=== PATIENT | female | born 1995 | race Caucasian/White ===

== ENCOUNTER 2019-06-15 14:30 | Inpatient (IN) ==
--- OUTSIDE RECORDS SUMMARY | 2019-06-15 14:37 | External Medical Summary | Continuity of Care Document ---
:1995 Author Name John Duran Address Unavailable Unavailable , Care Team Providers Name Role Phone Ailyn PACK Unavailable [email or web address] Mac Duran Unavailable [email or web address] Sylvia Davis Unavailable Unavailable Unavailable Unavailable Unavailable Problems Abnormal menses (626.9) (N92.6) Fatigue (780.79) (R53.83) Encounter for routine pelvic examination (V72.31) (Z01.419) Oral contraceptive pill surveillance (V25.41) (Z30.41) Venereal disease screening (V74.5) (Z11.3) Allergic rhinitis due to allergen (477.9) (J30.9) Infectious gastroenteritis (009.0) (A09) Asthmatic bronchitis (493.90) (J45.909) Extrinsic asthma (493.00) (J45.909) Allergic rhinitis due to dust (477.8) (J30.89) Allergic rhinitis due to pollen (477.0) (J30.1) Acute maxillary sinusitis (461.0) (J01.00) Acute sinusitis (461.9) (J01.90) Abdominal pain (789.00) (R10.9) Upper respiratory infection (465.9) (J06.9) Allergic rhinitis due to animals (477.2) (J30.81) Allergies and Adverse Reactions Zithromax TABS (Allergy) Reaction: Nause a, Vomiting Medications Zyrtec TABS Refills: 0 Singulair TABS Refills: 0 Proventil HFA 108 (90 Base) MCG/ACT Inha lation Aerosol Solution; INHALE TWO PUFFS BY MOUTH EVERY 4 HOURS NEEDED Renee Bolivar Start: Quantity: 1 Refills: 0 Falmina 0.1-20 MG-MCG Oral Tablet; TAKE 1 TABLET DAILY . Renee Watts Start: 30-Apr-2014 Quantity: 28 Refills: 3 Falmina 0.1-20 MG-MCG Oral Tablet; TAKE 1 TABLET DAILY . Renee Watts Start: 05-Nov-2015 Quantity: 28 Refills: 2 Fluticasone Propionate 50 MCG/ACT Nasal Suspension; USE 2 SPRAYS IN EACH NOSTRIL ONCE DAILY Renee Bolivar Start: 16-Jul-2011 Quantity: 1 Refills: 11 Procedures Procedures not documented Immunizations Hepatitis B On: 1995 0:00 Hepatitis B On: 22-Jan-1994 0:00 DTP - HIB ([place]) On: 22-Jan-1994 0:00 OPV On: 22-Jan-1994 0:00 DTP - HIB ([place]) On: 26-Mar-1994 0:00 OPV On: 26-Mar-1994 0:00 Hepatitis B On: 28-May-1994 0:00 DTP - HIB ([place]ramune) On: 28-May-1994 0:00 OPV On: 10-Oct-1994 0:00 HIB On: 08-Dec-1994 0:00 MMR On: 08-Dec-1994 0:00 DTaP On: 24-May-1995 0:00 Oriana test, tuberculin skin test; purifie d protein derivative, multipuncture device On: 28-Jul-1996 0:00 OPV On: 20-Apr-2000 0:00 MMR On: 20-Apr-2000 0:00 Tetanus-Diphtheria Toxoids Td 2-2 LF/0.5ML Intramuscul ar Suspension On: 20-Jul-2002 0:00 Influenza On: 29-Jul-2003 0:00 Influenza On: 29-Aug-2003 0:00 Tdap (Adacel) On: 13-Mar-2009 0:00 Menactra Intramuscular Injectable On: 13-Mar-2009 0:00 Meningo (Menactra) On: 16-Mar-2011 12:35 Lot #: [id number], [employer] HPV (Gardasil) 1 On: 16-Mar-2011 12:34 Lot #: [id number], [employer] Hepatitis A 1 On: 16-Mar-2011 12:34 Lot #: [id number], [employer] Influenza On: 12-Jun-2011 16:49 Lot #: [id number], [employer] HPV (Gardasil) On: 12-Jun-2011 16:48 Lot #: [id number], [employer] Hepatitis A 2 On: 03-Nov-2011 15:04 Lot #: [id number], [employer] HPV (Gardasil) 3 On: 03-Nov-2011 15:05 Lot #: [id number], [employer] Varicella Not Administered Family History Father Family history of Allergic Rhinitis Status: Active Mother Family history of Allergic Rhinitis Status: Active Social History - Smoking Status Never smoker Plan of Treatment Planned Observations Planned Goals not documented Results No Known Results Results not documented Encounters Appointment; Wali Robertson DMD 01-Jul-2018 10:00 Encounter Diagnosis: Problem not documented
[2019-06-15] MEDS ORDERED: miSOPROStol 50 MCG TAB PO ONE (16:00)
[2019-06-15] MEDS ORDERED: OXYTOCIN 30 UNITS/500 ML BAG IV PRN (16:00)
[2019-06-15 16:33] LABS: Hematocrit (blood only) 39.1 % (37-47); Hemoglobin 13.8 g/dL (12.0-16.0); Mean Corpuscular Hemoglobin 31.8 pg (25-34); Mean Corpuscular Volume 90.1 fL (80-100); Mean Platelet Volume 9.4 fL (7.4-10.4); Platelet Count 289 K/uL (130-400); RDW Coefficient of Variation 13.3 % (11.5-14.5); RDW Standard Deviation 43.7 fL (36.4-46.3); Red Blood Count 4.34 M/uL (4.2-5.4); White Blood Count 11.35 K/uL (4.8-10.8)
[2019-06-15 16:44] LABS: Mean Corpuscular Hgb Conc 35.3 g/dL (32-36)
--- NOTE | 2019-06-15 19:51 | History and Physical Report ---
DATE OF ADMISSION: 06/15/2019 HISTORY OF PRESENT ILLNESS: The patient is a 23-year-old G1, P0, at 40 weeks today, who was seen in the office. She had NST that supposedly showed some variables. Fluid check showed VANESSA was 5.8. The patient was sent to labor and delivery for induction of labor. On arrival to labor and delivery, she has no shortness of breath, no chills, no fever. heart rate is category 1. COURSE: Has been unremarkable. PAST MEDICAL HISTORY: History of migraines, PCOS, asthma, anxiety and depression. PAST SURGICAL HISTORY: None. SOCIAL HISTORY: The patient denies tobacco, drug or alcohol use. FAMILY HISTORY: Noncontributory. ALLERGIES: THE PATIENT IS ALLERGIC TO AZITHROMYCIN. PHYSICAL EXAMINATION: GENERAL: A well-developed, well-nourished white female in no acute distress. HEART: S1, S2, regular rhythm and rate. LUNGS: Clear to auscultation bilaterally. ABDOMEN: Gravid. PELVIC: Fingertip, 50%, posterior, -3. ASSESSMENT AND PLAN: A 23-year-old 1, para 0, at 40 weeks, here for induction of labor due to oligohydramnios. The patient is admitted and will undergo induction of labor. CARMEN
[2019-06-15] MEDS ORDERED: DINOPROSTONE 10 MG INSERT PV ONE (20:13)
--- NOTE | 2019-06-15 23:28 | Labor Progress Brief Note ---
Date of Service June 15, 2019 pt doing well induction for oligo FHR; CAT1 ctx; minimal VE; ft/post cervidil placed in vagina Results & Data Vital Signs (Past 12 Hours) Vital Signs Temp Pulse Resp BP 06/15/19 23:23 76 114/63 06/15/19 23:11 80 110/62 06/15/19 22:55 82 108/67 06/15/19 20:11 72 117/65 06/15/19 20:05 36.8 C 100 H 18 118/77 06/15/19 14:57 100 H 118/77 06/15/19 14:50 36.6 C 100 H 18 118/77
--- NOTE | 2019-06-16 10:00 | Obstetrical Progress Note ---
Date of Service June 16, 2019 Subjective I met wiht patient and Reviewed her records IOL for borderline oligohydramnios from yesterday Cervidil was placed at 2321 Having ctxs q 3-45 min, pain is 5 /10 FHR categ I Plant to continue to monitor, remove cervidil at 1120 All questions were answered Results & Data Vital Signs (Past 12 Hours) Vital Signs Temp Pulse Resp BP 06/16/19 07:10 36.8 C 71 18 114/62 06/16/19 03:29 36.6 C 77 129/74 06/15/19 23:23 76 114/63 06/15/19 23:15 36.7 C 18 06/15/19 23:11 80 110/62 06/15/19 22:55 82 108/67
[2019-06-16] MEDS ORDERED: DINOPROSTONE 10 MG INSERT PV ONE (12:36)
[2019-06-16] MEDS ORDERED: OXYTOCIN 30 UNITS/500 ML BAG IV PRN ×2 (13:05→23:20)
[2019-06-16] MEDS ORDERED: ONDANSETRON INJ 2 MG/ML 2 ML VIAL IV PRN ×2 (13:05→15:48)
[2019-06-16] MEDS ORDERED: BUTORPHANOL TARTRATE 1 MG/ML VIAL IV ONE (13:06)
--- NOTE | 2019-06-16 13:07 | Obstetrical Progress Note ---
Date of Service June 16, 2019 Subjective Patient is painful now asking for IV pain meds VSS Afebrile FHR categ I Frierson ctxs q3-5 min VE; 2/ 60%/ -2 Plan for IV Stadol and augmentation with pitocin Continue to monitor Results & Data Vital Signs (Past 12 Hours) Vital Signs Temp Pulse Resp BP 06/16/19 11:03 72 122/63 06/16/19 11:02 36.8 C 18 06/16/19 07:10 36.8 C 71 18 114/62 06/16/19 03:29 36.6 C 77 129/74
[2019-06-16] MEDS: LACTATED RINGER'S 1,000 ML IV PRN ×3 (13:15→22:29)
[2019-06-16] MEDS ORDERED: ePHEDrine sulfate 50 MG/ML AMP ONE (15:13)
[2019-06-16] MEDS ORDERED: BUPIVACAINE 0.25% 30 ML VIAL ONE (15:13)
[2019-06-16] MEDS ORDERED: fentaNYL citrate 100 MCG/2 ML VIAL ONE (15:13)
[2019-06-16] MEDS ORDERED: fentaNYL 2MCG/ML ROPIV 1.25MG/ML 100 ML BAG EPI ONE (15:14)
[2019-06-16] MEDS ORDERED: ePHEDrine sulfate 50 MG/ML AMP IV PRN (15:48)
[2019-06-16] MEDS ORDERED: DiphenhydrAMINE HCL 50 MG/ML VIAL IV PRN (15:48)
[2019-06-16] MEDS ORDERED: NALBUPHINE HCL INJ 10 MG/ML AMP IV PRN (15:48)
[2019-06-16] MEDS ORDERED: fentaNYL 2MCG/ML ROPIV 1.25MG/ML 100 ML BAG EPI PRN (15:48)
[2019-06-16] MEDS ORDERED: NALOXONE HCL 1 MG in SODIUM CHLORIDE 0.9% 1000ML 1,000 ML IV PRN (15:48)
[2019-06-16] MEDS ORDERED: NALOXONE HCL 0.4 MG/1 ML VIAL/CARP IV PRN (15:48)
--- NOTE | 2019-06-16 15:49 | Anesthesiology Consultation ---
Date of Service June 16, 2019 Assessment & Plan (1) Encounter for pre-operative examination: Chart Review Chart Review: Patient NOT seen in Pre Admission Testing and Acceptable Risk for Labor Epidural Consults Requested none ASA ASA2 Proposed Anesthesia Anesthesia Type: Labor Epidural Risk / Benefits Reviewed With: PT / POA / Parent / Guardian, Accepts Plan and Informed Consent Obtained History Height/Weight Height: 5 ft 7 in Weight: 82.554 kg Allergies Allergy/AdvReac Type Severity Reaction Status Date / Time azithromycin Allergy Nausea Verified 06/16/19 07:04 Medications Home Medications Medication Instructions Recorded Confirmed Last Taken albuterol sulfate [Ventolin HFA] 2 puff INHALATION Q4H PRN 06/19/18 06/15/19 0 04/15/19 18:00 PNV cmb#[id number]-ferrous fumarate-FA 1 tab PO DAILY 06/15/19 06/15/19 06/15/19 09:00 [] omeprazole magnesium [Prilosec OTC] 20 mg PO DAILY 06/15/19 06/15/19 06/15/19 09:00 ondansetron HCl [Zofran] 1 mg PO Q8 06/15/19 06/15/19 06/12/19 18:00 Active Medications Generic Name Dose Route Start Last Admin Trade Name Freq PRN Reason Stop Dose Admin Lactated Ringer's 1,000 mls @ 125 mls/hr 06/15/19 16:00 06/16/19 15:15 Lr IV 06/17/19 15:59 999 mls/hr .Q8H PRN Infusion L&D Protocol Protocol Oxytocin 30 units in 500 mls @ 6 mls/hr 06/16/19 13:05 06/16/19 15:25 Pitocin IV 06/18/19 13:04 0.36 units/hr .Q24H PRN 6 mls/hr Labor Induction/Augmentation Titration Protocol 0.36 UNITS/HR NPO Date Last Intake of Fluids: 06/16/19 Time Last Intake of Fluids: 12:00 Date Last Intake of Solids: 06/16/19 Time Last Intake of Solids: 12:00 Past Medical History Medical History Anxiety during Asthma Chronic mood disorder Depression exposure to alcohol Generalized anxiety disorder Hydradenitis Migraine PCOS (polycystic ovarian syndrome) Exercise / Class Metabolic Activity II 4-5 Yardwork/Stairs/Walk up hill Past Family History Family History Mother Bipolar 1 disorder Cancer Kidney disease Sister Bipolar 1 disorder Grandmother Cancer Grandmother (Paternal) Heart disease Father Hypertension Grandfather (Paternal) Multiple sclerosis Past Anesthesia History No Hx of Anesthesia Complications and No Family Hx of Anesthesia Complications History of PONV No Hx of PONV and No Hx of Motion Sickness Social History Smoking Status: Current every day smoker tobacco type: cigarettes Smoking cigarettes per day: 10-15 Do You Dip or Chew Tobacco: No Hx Alcohol Use: No Hx Substance Use: No substance use type: does not use Physical Exam Vital Signs Last Vital Signs Temp 36.8 C 06/16/19 11:02 Pulse 88 06/16/19 15:45 Resp 18 06/16/19 13:59 BP 102/57 L 06/16/19 15:45 Pulse Ox 100 06/16/19 15:42 ENMT Mouth: no dentition abnormality Thyromental Distance: > or= 3.5 Finger Breadths Mallampati Class: II Neck normal visual inspection Respiratory normal respiratory effort Auscultation: lungs clear to auscultation bilaterally Cardiovascular Rate/Rhythm: regular rate and regular rhythm Psychiatric Orientation: alert Testing Laboratory Results 06/15/19 16:16
--- NOTE | 2019-06-16 16:37 | Obstetrical Progress Note ---
Date of Service June 16, 2019 Subjective Patient is revaluated She feels much better, epidural helped a lot for pain VE; 3/ 60%/ -2, tight bulging bag, AROM'ed bloody show? vs tinged FHR categ I, good accels no decels and moderate variability Continue to monitor closely Results & Data Vital Signs (Past 12 Hours) Vital Signs Temp Pulse Resp BP Pulse Ox 06/16/19 16:32 87 98 06/16/19 16:27 78 94/62 L 100 06/16/19 16:22 90 100 06/16/19 16:17 82 100 06/16/19 16:12 76 100 06/16/19 16:11 89 16 116/61 06/16/19 16:09 77 16 104/55 L 06/16/19 16:07 82 101/51 L 99 06/16/19 16:05 83 16 104/59 L 06/16/19 16:03 96 H 96/65 L 06/16/19 16:02 86 100 06/16/19 16:01 90 16 100/57 L 06/16/19 15:59 87 103/55 L 06/16/19 15:57 87 102/58 L 100 06/16/19 15:55 88 111/56 L 06/16/19 15:53 86 96/50 L 06/16/19 15:52 85 99 06/16/19 15:51 89 95/52 L 06/16/19 15:49 89 109/53 L 06/16/19 15:47 90 109/53 L 99 06/16/19 15:45 88 102/57 L 06/16/19 15:43 92 H 108/58 L 06/16/19 15:42 80 100 06/16/19 15:40 73 124/71 06/16/19 15:37 77 100 06/16/19 15:35 87 94 06/16/19 15:32 87 97 06/16/19 15:27 79 97 06/16/19 15:22 93 H 100 06/16/19 15:18 88 121/73 06/16/19 15:17 83 123/75 100 06/16/19 15:05 88 95 06/16/19 15:00 78 96 06/16/19 14:55 79 95 06/16/19 14:50 76 97 06/16/19 14:45 80 94 06/16/19 14:40 78 95 06/16/19 14:35 77 95 06/16/19 14:30 77 95 06/16/19 14:29 80 94 06/16/19 14:25 78 95 06/16/19 14:20 86 97 06/16/19 14:15 75 97 06/16/19 14:10 75 96 06/16/19 14:05 77 95 06/16/19 14:00 88 95 06/16/19 13:59 79 18 119/60 06/16/19 13:55 78 95 06/16/19 13:50 79 95 06/16/19 13:45 85 95 06/16/19 13:40 80 97 06/16/19 13:35 83 95 06/16/19 13:34 85 93 06/16/19 13:30 80 95 06/16/19 13:07 75 126/63 06/16/19 11:03 72 122/63 06/16/19 11:02 36.8 C 18 06/16/19 07:10 36.8 C 71 18 114/62
[2019-06-16] MEDS ORDERED: Nursing to Pharmacy Communication ONE (22:23)
[2019-06-16] MEDS ORDERED: BENZOCAINE 20% AER SPR 82.5 GM CAN EXT PRN (23:20)
[2019-06-16] MEDS ORDERED: ACETAMINOPHEN 325 MG TAB PO PRN (23:20)
[2019-06-16] MEDS ORDERED: SUPERCREAM 0.870% 15 GM JAR EXT PRN (23:20)
[2019-06-16] MEDS ORDERED: OXYCODONE/ACETAMINOPHEN 5mg/325mg TAB PO PRN (23:20)
[2019-06-16] MEDS ORDERED: HYDROCORTISONE ACETATE 25 MG SUPP PR PRN (23:20)
[2019-06-16] MEDS ORDERED: BISACODYL 10 MG SUPP PR PRN (23:20)
[2019-06-16] MEDS ORDERED: DIPHTHERIA/TETANUS/PERTUSSIS 0.5 ML SYR/VIAL IM ONE (23:20)
[2019-06-16] MEDS ORDERED: LACTATED RINGER'S 1,000 ML IV SCH (23:30)
[2019-06-17] MEDS: IBUPROFEN 600 MG TAB PO PRN ×4 (00:22→19:42)
--- NOTE | 2019-06-17 00:36 | Delivery Summary ---
DATE OF OPERATION: 06/16/2019 TIME OF DELIVERY OF BABY: 22:57 p.m. DETAILS OF DELIVERY: The patient was found to be fully dilated and desired to push. She pushed for about 45 minutes and the head was over the perineum, which had tight hymenal band ring and perineal muscles and the heart rate was having decelerations on and off and the patient desired episiotomy to help. A small right mediolateral episiotomy was opened. Head was delivered, right after shoulders came spontaneously. There was a nuchal cord around the neck x1 which was reduced. Baby was handed to the mother where mouth and nose were suctioned. Cord was clamped x2 and cut at 1 minute delay. Cord blood was obtained, and vagina and perineum were checked for lacerations. There was only small right mediolateral episiotomy which was opened earlier, no other lacerations were found. It was repaired with 0 Vicryl in a running fashion bringing the vaginal mucosa muscles together, bulbocavernous muscles together and skin in a subcuticular fashion. Excellent hemostasis was achieved. Placenta was found to be in the vagina, delivered spontaneous as intact and complete. Fundus was firm. Lower segment was cleared of all clots and debris. EBL was 200 mL. Mom and baby tolerated the procedure well. Sponge, lap, needle count was correct x2. Baby was a viable female , Apgars 7/8. No complications happened and I was present during whole procedure. I attest to the content of the Intraoperative Record and any orders documented therein. Any exceptions are noted below. CARMEN
[2019-06-17 06:48] LABS: Hematocrit (blood only) 31.8 % (37-47); Hemoglobin 10.7 g/dL (12.0-16.0); Mean Corpuscular Hemoglobin 30.8 pg (25-34); Mean Corpuscular Hgb Conc 33.6 g/dL (32-36); Mean Corpuscular Volume 91.6 fL (80-100); Mean Platelet Volume 9.8 fL (7.4-10.4); Platelet Count 220 K/uL (130-400); RDW Coefficient of Variation 13.5 % (11.5-14.5); RDW Standard Deviation 44.7 fL (36.4-46.3); Red Blood Count 3.47 M/uL (4.2-5.4); White Blood Count 11.86 K/uL (4.8-10.8)
[2019-06-17] MEDS: DOCUSATE SODIUM 100 MG CAP PO SCH ×2 (08:13→21:06)
[2019-06-17] MEDS: FERROUS SULFATE 325 MG TAB PO SCH (08:13)
[2019-06-17] MEDS: PRENATAL VITAMIN 1 TAB PO SCH (08:13)
--- NOTE | 2019-06-17 08:48 | Anesthesia Procedure Note ---
Date of Service June 17, 2019 Anesthesia Post Epidural Note Vital Signs Vital Signs: Temp Pulse Resp BP Pulse Ox 97.7 F 91 H 16 119/69 99 06/17/19 06:00 06/17/19 06:00 06/17/19 06:00 06/17/19 06:00 06/17/19 06:00 Pain Intensity Bilateral Abdomen: Pain Intensity: 0 Episiotomy/Laceration: Pain Intensity: 6 Notes Mental Status: alert / awake / arousable and participated in evaluation Nausea / Vomiting: adequately controlled Pain: adequately controlled Airway Patency, RR, SpO2: stable & adequate BP & HR: stable & adequate Hydration State: stable & adequate Neuraxial Anesthesia: was administered and sensory block is resolving Anesthetic Complications: no major complications apparent and Pt Satisfied with anesthetic care Epidural: Removed without complications and With tip intact
[2019-06-17] MEDS ORDERED: Nursing to Pharmacy Communication ONE (09:51)
--- NOTE | 2019-06-17 11:53 | Obstetrical Progress Note ---
Date of Service June 17, 2019 Assessment & Plan (1) Normal delivery at term: PPd #1 pt doing well d/C home tomorrow Results & Data Vital Signs (Past 12 Hours) Vital Signs Temp Pulse Pulse Resp BP BP BP 06/17/19 08:05 36.5 C 92 H 21 124/86 06/17/19 06:00 36.5 C 91 H 16 119/69 06/17/19 01:55 36.7 C 83 18 119/74 06/17/19 01:18 82 116/70 06/17/19 01:15 36.9 C 18 06/17/19 00:50 84 120/65 06/17/19 00:45 18 06/17/19 00:15 20 06/17/19 00:12 78 122/76 06/17/19 00:00 18 06/16/19 23:57 90 120/79 Pulse Ox 06/17/19 08:05 100 06/17/19 06:00 99 06/17/19 01:55 98 06/17/19 01:18 06/17/19 01:15 06/17/19 00:50 06/17/19 00:45 06/17/19 00:15 06/17/19 00:12 06/17/19 00:00 06/16/19 23:57
[2019-06-17] MEDS ORDERED: BISACODYL 5 MG TABEC PO SCH (20:00)
[2019-06-18] MEDS: IBUPROFEN 600 MG TAB PO PRN ×2 (00:47→07:27)
[2019-06-18 06:08] LABS: Hematocrit (blood only) 32.7 % (37-47); Hemoglobin 10.7 g/dL (12.0-16.0)
[2019-06-18] MEDS: DOCUSATE SODIUM 100 MG CAP PO SCH (07:27)
[2019-06-18] MEDS: PRENATAL VITAMIN 1 TAB PO SCH (07:27)
[2019-06-18] MEDS: FERROUS SULFATE 325 MG TAB PO SCH (07:27)
[2019-06-18] MEDS ORDERED: MEASLES, MUMPS & RUBELLA VIRUS VIAL SQ ONE (10:29)
--- NOTE | 2019-06-18 12:07 | Obstetrical Progress Note ---
Date of Service June 18, 2019 Assessment & Plan (1) Normal delivery at term: PPD #2 pt doing well d/c home with instructions Subjective Ambulation: ambulating normally Voiding: no voiding problems Passing Gas:: Yes Diet Tolerance:: regular diet Lochia:: Small Feeding Type:: breast feeding Review of Systems All systems reviewed & are unremarkable except as noted in HPI & below Physical Exam Constitutional WD/WN, vitals as above well developed and well nourished Eyes PERRL, conjunctivae normal, anicteric sclerae Neck trachea midline, no thyromegaly Respiratory normal respiratory effort, lungs clear to auscultation Auscultation: no crackles, no rales and no wheezes Cardiovascular RRR, no murmur, no edema Gastrointestinal (Abdomen) normal bowel sounds, soft, nontender, no hepatosplenomegaly Uterus is below umbilicus Musculoskeletal no cyanosis or clubbing, extremities motor strength 5/5 Skin no rashes, warm and dry Neurologic patellar DTR's 2+ bilat, sensation intact Psychiatric A+Ox3, euthymic affect Genitourinary normal external appearance Results & Data Vital Signs (Past 12 Hours) Vital Signs Temp Pulse Pulse Resp BP BP Pulse Ox 06/18/19 09:58 36.8 C 79 82 19 103/61 106/67 100 06/18/19 07:30 36.8 C 82 19 106/67 100
== END 2019-06-18 13:03 | disposition home or self-care (01) | DRG 807 ==
LOC: OPB 14:30 → 4S1 14:30 → 4N 06-17 01:25